=== PATIENT | female | born 1975 | race African-American/Black ===

== ENCOUNTER 2021-04-11 18:50 | Inpatient (IN) | payer SELFPAY ==
[~2021-04-11] VITALS: Ht 167.6 cm; Wt 75.3 kg
[2021-04-11 21:10] VITALS: BP 200/118
--- NOTE | 2021-04-11 21:10 | NUR ---
Patient admitted from [facility] ER via ambulance to room 414. Patient is alert and oriented x4. Patient has NKA. Patient c/o waking up this morning with severe abdominal pain. Patient states pain in sharp likes birthing contractions. CT scan of abdominal and pelvis positive for SBO. Patient has NG tube in place 14Fr right nare that is clamped. Patient denies nausea and vomiting at this time. Will continue to monitor.
[2021-04-11 23:00] VITALS: BP 181/98
[2021-04-11] MEDS ORDERED: PHENOL ORAL SPRAY 177ML BOTTLE. PO PRN (23:00)
[2021-04-11] MEDS ORDERED: ONDANSETRON PF 4 MG/2 ML VIAL. IVP PRN (23:00)
[2021-04-11] MEDS: IV NORMAL SALINE 1000ML BAG 1,000 ML IV SCH (23:24)
[2021-04-11] MEDS: fentaNYL PF VIAL 100 MCG/2 ML VIAL IVP PRN (23:27)
[2021-04-11] MEDS: hydrALAZINE 20 MG/ML VIAL. IVP PRN (23:30)
[2021-04-11] MEDS ORDERED: ALPR0.5T6 PO (23:44)
[2021-04-11] MEDS ORDERED: LISI1TAB23 PO (23:44)
[2021-04-12 07:00] VITALS: BP 171/101
[2021-04-12] MEDS: IV NORMAL SALINE 1000ML BAG 1,000 ML IV SCH ×2 (08:45→19:00)
[2021-04-12] MEDS: hydrALAZINE 20 MG/ML VIAL. IVP PRN (08:45)
[2021-04-12] MEDS: fentaNYL PF VIAL 100 MCG/2 ML VIAL IVP PRN (08:50)
--- NOTE | 2021-04-12 08:51 | PDOC2 ---
ISAÍAS BROWNING H[employer]ER 04/12/21 0851: CONSULT Date of Consult Date of Consult DATE: 04/12/21 TIME: 08:46 Reason for Consult Reason for Consult: sbo Referring Physician Referring Physician: Dr Gonzalez Identification/Chief Complaint Chief Complaint abdominal pain Source Source: Chart review, Patient History of Present Illness Reason for Visit: reports 2 normal stools around 5 am yesterday, then started having abdominal pain at 6 am. She went to work, the pain progressively worsened. Nausea, emesis at hospital Imaging concerning for SBO, possible closed loop on CT She reports improvement with NG tube, a little flatus last night Past Medical History Cardiovascular: HTN Past Surgical History Past Surgical History: , Tubal Ligation Family History Family History: Other (noncontributory to current illness ) Social History No ALCOHOL: other (2 beers daily) Lives: Alone Current Medications Current Medications Current Medications Sodium Chloride 1,000 ml @ 100 mls/hr Q10H IV Last administered on 04/11/21at 23:24; Start 04/11/21 at 23:00 Fentanyl Citrate (Fentanyl 2ml Vial) 50 mcg PRN Q3HRS PRN IVP SEVERE PAIN 7-10 Last administered on 04/11/21at 23:27; Start 04/11/21 at 23:00 Ondansetron HCl (Zofran) 4 mg PRN Q4HRS PRN IVP NAUSEA/VOMITING 1ST CHOICE; Start 04/11/21 at 23:00 Phenol (Chloraseptic) 1 spray PRN Q2HR PRN PO SORE THROAT; Start 04/11/21 at 23:00 Hydralazine HCl (Apresoline Inj) 10 mg PRN Q4HRS PRN IVP ELEVATED BP, SEE COMMENTS Last administered on 04/11/21at 23:30; Start 04/11/21 at 23:00 Lorazepam (Ativan Inj) 0.5 mg PRN Q6HRS PRN IVP ANXIETY / AGITATION Last administered on 04/11/21at 23:25; Start 04/11/21 at 23:00 Active Scripts Active Reported Alprazolam 0.5 Mg Tablet 1 Tab PO DAILY Lisinopril-Hctz 10-12.5 Mg Tab (Lisinopril/Hydrochlorothiazide) 1 Each Tablet 1 Tab PO DAILY Allergies Allergies: Coded Allergies: No Known Drug Allergies (Unverified , 04/11/21) ROS General: No: Chills, Other (fevers ) PSYCHOLOGICAL ROS: No: Anxiety, Depression Eyes: No Blurry vision, No Double vision HEENT: No: Heacaches, Sore Throat Hematological and Lymphatic: No: Bleeding Problems, Blood Clots Respiratory: No: Cough, Shortness of breath Cardiovascular: yes Chest Pain (2 days prior episode of chest pain ); No Palpitations Gastrointestinal: Yes Other (see hpi) Genitourinary: No Dysuria, No Hematuria Musculoskeletal: No Joint Pain, No Muscle Pain Neurological: No Impaired Coord/balance, No Numbness/Tingling Skin: No Pruritus, No Rash Physical Exam General: Alert, Oriented X3, Cooperative HEENT: PERRLA, Other (ng present ) Lungs: Clear to auscultation, Normal air movement Heart: Regular rate, Normal S1, Normal S2 Abdomen: Soft, No tenderness Extremities: No clubbing, No cyanosis Skin: No rashes, No breakdown Neuro: Normal gait, Normal speech Psych/Mental Status: Mental status NL, Mood NL MUSCULOSKELETAL: No deformity, No swelling Vitals VITALS Vital Signs Date Time Temp Pulse Resp B/P (MAP) Pulse Ox O2 Delivery O2 Flow Rate FiO2 04/12/21 07:00 98.1 80 17 171/101 (124) 100 Room Air 98.1 Assessment/Plan Assessment/Plan SBO vs ileus---will check SBFT to further evaluate HTN--defer to primary for management XIMENA OLVERA MD 04/12/21 1742: CONSULT Assessment/Plan Assessment/Plan Pt seen and examined. Agree with Ms. Browning's note Pt feels better, abd soft, ND, NTTP SBFT without obvious obstruction will clamp NGT and try clears Thanks for consult! ISAÍAS BROWNING APRN Apr 12, 2021 08:51 XIMENA OLVERA MD Apr 12, 2021 17:42
[2021-04-12] MEDS ORDERED: IOHEXOL 300 MG/ML 100ML VIAL. PO ONE (09:00)
[2021-04-12] MEDS ORDERED: CONTRAST GIVEN. MC PRN (09:00)
--- NOTE | 2021-04-12 09:40 | NUR ---
SW following. Discussed with RN, pt from home with daughter, room air. Surgery following. Pt having a small bowel series today. Med Assist following for self pay status. SW will continue to follow.
--- NOTE | 2021-04-12 10:41 | HP ---
ADMIT DATE: 04/11/2021 HISTORY OF PRESENT ILLNESS: The patient is a 45-year-old -[place] female patient who presented to the emergency room of [facility] with a complaint of abdominal pain, generalized that has been intermittent, started around 6 a.m. yesterday morning. She also has pain that has increased, which is why she was seen in the emergency room. The patient also reports some nausea. Denied any vomiting or diarrhea. Denied taking anything for pain. The patient has a history of anxiety and hypertension. She was extensively investigated in the emergency room, has had lab work that were unremarkable. The CT scan of the abdomen and pelvis without contrast showed that the patient has a mechanical small-bowel obstruction with transition point in the lower anterior abdomen. Some of the loops have a C-shaped configuration that is suggestive of closed loop, but this is not definitive as 2 transition points are not identified. The patient has had an NG tube placed and was transferred to [facility] where she was kept n.p.o., started on IV fluid, IV pain medication and antiemetic and we did consult the surgical team for further evaluation and treatment. PAST MEDICAL HISTORY: Significant for hypertension and anxiety. PAST SURGICAL HISTORY: Significant for 2 C-sections and she has had a tubal ligation and eventually total abdominal hysterectomy, bilateral salpingo-oophorectomy. ALLERGIES: She has no known drug allergies. MEDICATIONS: She is on lisinopril/hydrochlorothiazide 10/12.5 one tablet once a day. She is on alprazolam 0.5 mg daily and fluoxetine 40 mg once a day. FAMILY HISTORY: She has two sisters and 10 brothers. Her father at the age of 67 because of myocardial infarction and mother at age of 45 because of myocardial infarction. SOCIAL HISTORY: She is , but . She has four grown-up children and 3 sons and 1 daughter. She does not smoke, drinks alcohol occasionally. 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 PHYSICAL EXAMINATION: GENERAL: On arrival to the emergency room, she looked well and was clearly in no apparent respiratory distress. No pallor, jaundice, cyanosis, or thyromegaly. No jugular distention. No limb edema. VITAL SIGNS: Her heart rate was 90, blood pressure was 195/115, temperature 97.9, respiratory rate was 18, and oxygen saturation 100% on room air. HEENT: Examination of the head, eyes, ears, nose, and throat: Normocephalic, atraumatic. NECK: Supple. HEART: Showed normal first and second heart sounds, no gallop or murmur. CHEST: Clear to auscultation. No crepitation or rhonchi. ABDOMEN: Distended, soft, nontender. She does have generalized tenderness, but no palpable masses. NEUROLOGIC: She was alert, oriented x 3 with no motor or sensory deficit. LABORATORY DATA: While in the emergency room she has had lab work done showed a serum sodium 145, potassium 4, chloride 105, bicarbonate 29, anion gap of 11, BUN 12, creatinine 0.6. Estimated GFR was 130 mL per minute. Her glucose was 95. Lactic acid was 0.7, calcium was 9.5. Total bilirubin, AST, ALT, alkaline phosphatase were normal. Total protein 7.6, albumin 3.9 and serum lipase was 71. Her white cell count was 9100, hemoglobin 13.9, hematocrit 43, MCV 86 and platelet count 370,000 with normal manual differential. ASSESSMENT AND PLAN: In summary, this is a 45-year-old -[place] female patient who presented to the emergency room with generalized abdominal pain and nausea, but no vomiting. CT scan showed that she has a mechanical small-bowel obstruction likely due to adhesions. She has multiple surgeries including two C-sections, tubal ligation and a total abdominal hysterectomy, bilateral salpingo-oophorectomy. She had an NG tube placed to low intermittent suction. She continued IV fluid, IV pain medication and antiemetic and rehab. We did consult the surgical team for definitive surgical treatment. SHENG/ALEXIS DR: Shakeel TID: [id number]
--- NOTE | 2021-04-12 10:42 | PN ---
DATE: 04/12/2021 SUBJECTIVE: The patient is resting, slightly propped up in bed in no apparent distress. She is awake, alert. Her NG tube was clamped. On questioning her, she stated that she has no abdominal pain, no nausea, no vomiting. She did pass some gases. She apparently was seen by the surgical team and scheduled for small bowel follow through. PHYSICAL EXAMINATION: GENERAL: When I examined her this morning, she looked well and was clearly in no apparent respiratory distress. No pallor, jaundice, cyanosis, thyromegaly. No jugular venous distention. No lower limb edema. VITAL SIGNS: Heart rate was 80, blood pressure is 171/101, temperature was 98.1, respiratory rate was 17, and oxygen saturation 100% on room air. HEAD, EYES, EARS, NOSE AND THROAT: Normocephalic, atraumatic. NECK: Supple. HEART: Showed normal first and second heart sounds. No gallop or murmur. CHEST: Clear to auscultation, no crepitation or rhonchi. ABDOMEN: Distended, soft, nontender, no guarding or rigidity. No organomegaly. All hernial orifice intact. Bowel sounds normal. NEUROLOGIC: She is grossly intact. ASSESSMENT AND PLAN: A 45-year-old -Mexican female patient with small-bowel obstruction, did pass gas. She has an NG tube to intermittent suction, is now clamped and she is scheduled for small bowel follow through and we will continue with IV fluid, IV pain medication and antiemetic. I will repeat on her labs. AMERICO DR: Shakeel TID: [id number]
[2021-04-12 10:55] LABS: BASO % 1 % (0-3); EOS % 0 % (0-3); HEMATOCRIT 42.1 % (36.0-47.0); LYMPH # 1.5 x10^3/uL (1.0-4.8); LYMPH % 14 % (24-48); MEAN CORPUSCULAR HEMOGLOBIN 28 pg (25-35); MEAN CORPUSCULAR HGB CONC 33 g/dL (31-37); MEAN CORPUSCULAR VOLUME 85 fL (79-100); MONO # 0.7 x10^3/uL (0.0-1.1); MONO % 7 % (0-9); NEUT # 8.1 x10^3/uL (1.8-7.7); NEUT % 79 % (31-73); PLATELET COUNT 363 x10^3/uL (140-400); RED BLOOD COUNT 4.96 x10^6/uL (3.50-5.40); RED CELL DISTRIBUTION WIDTH 14.8 % (11.5-14.5); WHITE BLOOD COUNT 10.3 x10^3/uL (4.0-11.0)
[2021-04-12 11:00] VITALS: BP 180/104
[2021-04-12 11:13] LABS: ALBUMIN 3.7 g/dL (3.4-5.0); ALBUMIN/GLOBULIN RATIO 1.1 (1.0-1.7); CALCIUM 8.8 mg/dL (8.5-10.1); CREATININE 0.5 mg/dL (0.6-1.0); GFR 161.4; POTASSIUM 3.3 mmol/L (3.5-5.1); TOTAL BILIRUBIN 0.5 mg/dL (0.2-1.0); TOTAL PROTEIN 7.2 g/dL (6.4-8.2)
--- NOTE | 2021-04-12 12:57 | RAD ---
EXAM: WATER-SOLUBLE SMALL BOWEL FOLLOW-THROUGH. HISTORY: Small bowel obstruction. COMPARISON: 04/11/2021. FINDINGS: A shiatsu therapist image was obtained. Water-soluble contrast material was administered orally and fol lowed in its course through the stomach, small bowel and proximal colon with plain radiographs. Fluor oscopy was not performed. The shiatsu therapist image demonstrates a nonobstructive bowel gas pattern. No distended small bowel loops are s een. A nasogastric tube has its tip in the fundus of the stomach. Contrast from a prior procedure has reached the colon. There are no distended small bowel loops. No strictures are seen. The small bowel fold pattern is unr emarkable. Transit time was normal at 60 minutes (normal <2 hours.) IMPRESSION: 1. No evidence of small bowel obstruction currently. Electronically signed by: Noam Kerns MD (04/12/2021 12:55 PM) [id number]
[2021-04-12 15:00] VITALS: BP 174/109
[2021-04-12] MEDS ORDERED: hydrALAZINE 20 MG/ML VIAL. IVP PRN (16:00)
[2021-04-12] MEDS: LISINOPRIL 10 MG TABLET PO SCH (16:17)
[2021-04-12] MEDS: ALPRAZolam 0.5 MG TABLET PO SCH (16:17)
[2021-04-12] MEDS ORDERED: ACETAMINOPHEN 325 MG TABLET. PO PRN (16:45)
[2021-04-12] MEDS: hydroCHLOROthiazide 12.5 MG CAPSULE PO SCH (17:24)
[2021-04-12 19:00] VITALS: BP 157/99
[2021-04-12 23:00] VITALS: BP 155/100
[2021-04-13 03:00] VITALS: BP 156/100
[2021-04-13] MEDS: IV NORMAL SALINE 1000ML BAG 1,000 ML IV SCH (05:00)
[2021-04-13 07:00] VITALS: BP 171/104
[2021-04-13] MEDS: LISINOPRIL 10 MG TABLET PO SCH (08:33)
[2021-04-13] MEDS: hydroCHLOROthiazide 12.5 MG CAPSULE PO SCH (08:34)
[2021-04-13] MEDS: ALPRAZolam 0.5 MG TABLET PO SCH (08:34)
[2021-04-13] MEDS ORDERED: POTA20TA4 PO (09:01)
--- NOTE | 2021-04-13 09:05 | PDOC ---
SURGICAL PROGRESS NOTE DATE: 04/13/21 TIME: 09:03 Subjective tolerating clears ng clamped having loose stool would like to go home Vital Signs Vital Signs Date Time Temp Pulse Resp B/P (MAP) Pulse Ox O2 Delivery O2 Flow Rate FiO2 04/13/21 08:33 87 171/104 04/13/21 07:00 98.4 16 98 Room Air 98.4 I&O Intake and Output 04/13/21 07:00 Intake Total 240 ml Output Total 0 ml Balance 240 ml Intake Oral 240 ml Output Urine Total 0 ml # Voids 2 General: Alert, Oriented X3, Cooperative Abdomen: Soft, No tenderness Labs Laboratory Tests Test 04/12/21 10:10 White Blood Count 10.3 x10^3/uL (4.0-11.0) Red Blood Count 4.96 x10^6/uL (3.50-5.40) Hemoglobin 14.0 g/dL (12.0-15.5) Hematocrit 42.1 % (36.0-47.0) Mean Corpuscular Volume 85 fL (79-100) Mean Corpuscular Hemoglobin 28 pg (25-35) Mean Corpuscular Hemoglobin Concent 33 g/dL (31-37) Red Cell Distribution Width 14.8 % (11.5-14.5) Platelet Count 363 x10^3/uL (140-400) Neutrophils (%) (Auto) 79 % (31-73) Lymphocytes (%) (Auto) 14 % (24-48) Monocytes (%) (Auto) 7 % (0-9) Eosinophils (%) (Auto) 0 % (0-3) Basophils (%) (Auto) 1 % (0-3) Neutrophils # (Auto) 8.1 x10^3/uL (1.8-7.7) Lymphocytes # (Auto) 1.5 x10^3/uL (1.0-4.8) Monocytes # (Auto) 0.7 x10^3/uL (0.0-1.1) Eosinophils # (Auto) 0.0 x10^3/uL (0.0-0.7) Basophils # (Auto) 0.0 x10^3/uL (0.0-0.2) Sodium Level 140 mmol/L (136-145) Potassium Level 3.3 mmol/L (3.5-5.1) Chloride Level 105 mmol/L (98-107) Carbon Dioxide Level 21 mmol/L (21-32) Anion Gap 14 (6-14) Blood Urea Nitrogen 8 mg/dL (7-20) Creatinine 0.5 mg/dL (0.6-1.0) Estimated GFR (Cockcroft-Gault) 161.4 BUN/Creatinine Ratio 16 (6-20) Glucose Level 94 mg/dL (70-99) Calcium Level 8.8 mg/dL (8.5-10.1) Total Bilirubin 0.5 mg/dL (0.2-1.0) Aspartate Amino Transf (AST/SGOT) 23 U/L (15-37) Alanine Aminotransferase (ALT/SGPT) 23 U/L (14-59) Alkaline Phosphatase 66 U/L (46-116) Total Protein 7.2 g/dL (6.4-8.2) Albumin 3.7 g/dL (3.4-5.0) Albumin/Globulin Ratio 1.1 (1.0-1.7) Laboratory Tests Test 04/12/21 10:10 White Blood Count 10.3 x10^3/uL (4.0-11.0) Red Blood Count 4.96 x10^6/uL (3.50-5.40) Hemoglobin 14.0 g/dL (12.0-15.5) Hematocrit 42.1 % (36.0-47.0) Mean Corpuscular Volume 85 fL (79-100) Mean Corpuscular Hemoglobin 28 pg (25-35) Mean Corpuscular Hemoglobin Concent 33 g/dL (31-37) Red Cell Distribution Width 14.8 % (11.5-14.5) Platelet Count 363 x10^3/uL (140-400) Neutrophils (%) (Auto) 79 % (31-73) Lymphocytes (%) (Auto) 14 % (24-48) Monocytes (%) (Auto) 7 % (0-9) Eosinophils (%) (Auto) 0 % (0-3) Basophils (%) (Auto) 1 % (0-3) Neutrophils # (Auto) 8.1 x10^3/uL (1.8-7.7) Lymphocytes # (Auto) 1.5 x10^3/uL (1.0-4.8) Monocytes # (Auto) 0.7 x10^3/uL (0.0-1.1) Eosinophils # (Auto) 0.0 x10^3/uL (0.0-0.7) Basophils # (Auto) 0.0 x10^3/uL (0.0-0.2) Sodium Level 140 mmol/L (136-145) Potassium Level 3.3 mmol/L (3.5-5.1) Chloride Level 105 mmol/L (98-107) Carbon Dioxide Level 21 mmol/L (21-32) Anion Gap 14 (6-14) Blood Urea Nitrogen 8 mg/dL (7-20) Creatinine 0.5 mg/dL (0.6-1.0) Estimated GFR (Cockcroft-Gault) 161.4 BUN/Creatinine Ratio 16 (6-20) Glucose Level 94 mg/dL (70-99) Calcium Level 8.8 mg/dL (8.5-10.1) Total Bilirubin 0.5 mg/dL (0.2-1.0) Aspartate Amino Transf (AST/SGOT) 23 U/L (15-37) Alanine Aminotransferase (ALT/SGPT) 23 U/L (14-59) Alkaline Phosphatase 66 U/L (46-116) Total Protein 7.2 g/dL (6.4-8.2) Albumin 3.7 g/dL (3.4-5.0) Albumin/Globulin Ratio 1.1 (1.0-1.7) Problem List dc ng advance diet can dc per primary, htn as per primary Justicifation of Admission Dx: Justifications for Admission: Justification of Admission Dx: Yes Comments: ISAÍAS Baker APRN Apr 13, 2021 09:05
[2021-04-13] MEDS ORDERED: POTASSIUM CHLORIDE 20 MEQ TABLET.ER. PO ONE (09:30)
--- NOTE | 2021-04-13 09:55 | NUR ---
SW following. Discussed with RN, pt from home with daughter, room air, GI soft. NG being removed today. If pt tolerates lunch can DC per RN. Per Med Assist, pt does not qualify for any programs at this time. SW will continue to follow.
[2021-04-13 11:00] VITALS: BP 146/95
--- NOTE | 2021-04-13 14:09 | NUR ---
Discharge Note: ANKIT DAVENPORT Discharge instructions and discharge home medications reviewed with Patient and a copy given. All questions have been answered and understanding verbalized. The following instructions and handouts were given: information about follow up appointment, SBO information, info about HTN, medications, diet, activity, etc. Discontinued lines and drains: no IV line present. Patient discharged to home with self care with family member, wheelchair used for mobility to discharge vehicle.
== END 2021-04-13 14:09 | disposition home or self-care (01) | DRG 390 ==
LOC: 4 NORTH 21:06
PROVIDERS: ADMIT Internal Medicine; ATTEND Internal Medicine
PROC: 0D9670Z Drainage of Stomach with Drainage Device, Via Natural or Artificial Opening (ICD-10-PCS; principal; 2021-04-12)
DX: K56.50 Intestinal adhesions [bands], unspecified as to partial versus complete obstruction (principal); I10 Essential (primary) hypertension; F41.9 Anxiety disorder, unspecified; Z90.710 Acquired absence of both cervix and uterus; Z90.79 Acquired absence of other genital organ(s); Z90.722 Acquired absence of ovaries, bilateral; Z82.49 Family history of ischemic heart disease and other diseases of the circulatory system
CPT/HCPCS: 36415; 74250; 80053; 85025; J0360; J2060; J3010; J7030; Q9967; G0378